=== PATIENT | male | born 1955 | race Caucasian/White ===

== ENCOUNTER 2018-12-10 13:09 | Day surgery (SDC) | payer OTHER ==
[2018-12-08 10:30] VITALS: BMI 27.4
--- NOTE | 2018-12-10 12:26 | OP ---
Operative Note - Note: Operative Date: 12/10/18 Pre-Operative Diagnosis: Right rotator cuff repair Operation: Right shoulder arthroscopy Post-Operative Diagnosis: Same as Pre-op Surgeon: Con Ashley Metal Window Frame Maker: Janeen Adair Anesthesia: General Operative Report Dictated: Yes
[2018-12-10] MEDS ORDERED: ROPIVACAINE HCL 0.5% 30ML VIAL ONE (14:10)
[2018-12-10] MEDS ORDERED: MIDAZOLAM HCL 2 MG/2 ML SINGLE DOSE VIAL ONE (14:10)
[2018-12-10] MEDS ORDERED: EPINEPHrine 1:1,000 1 MG/1 ML - 30ML VIAL (INJECTION) ONE (14:38)
[2018-12-10] MEDS ORDERED: oxyCODONE HCL 5 MG TABLET PO PRN ×2 (14:47)
[2018-12-10] MEDS ORDERED: ACETAMINOPHEN 1000 MG/100 ML VIAL (NON FORMULARY) IVPB ONE ×2 (14:47→18:00)
[2018-12-10] MEDS ORDERED: ONDANSETRON 4 MG/2 ML VIAL IVPUSH PRN (14:47)
[2018-12-10] MEDS ORDERED: DEXAMETHASONE SOD PHOSPHATE/PF 10 MG/ML SDV ONE (14:54)
[2018-12-10] MEDS ORDERED: LACTATED RINGERS SOLUTION 1,000 ML IV SCH (15:00)
[2018-12-10] MEDS ORDERED: PROPOFOL 20 ML ONE (15:22)
[2018-12-10] MEDS ORDERED: ceFAZolin SODIUM 1 GM VIAL ONE (15:37)
[2018-12-10] MEDS ORDERED: TRANEXAMIC ACID 1000 MG/10 ML VIAL ONE (16:02)
[2018-12-10] MEDS ORDERED: LIDOCAINE 1%/EPI 1:100000 (20 ML MULTI DOSE VIAL) ONE (16:55)
[2018-12-10] MEDS ORDERED: LIDOCAINE 1%/EPI 1:100000 (50 ML MULTI DOSE VIAL) INF ONE (17:24)
[2018-12-10] MEDS ORDERED: ACETAMINOPHEN INJECTION 100 ML IVPB ONE (18:01)
[2018-12-10 19:04] VITALS: TEMP 98.6
--- NOTE | 2018-12-10 19:07 | OP ---
DATE OF OPERATION: 12/10/2018 PREOPERATIVE DIAGNOSIS: Right shoulder rotator cuff tear, biceps tendinopathy. POSTOPERATIVE DIAGNOSIS: Right shoulder rotator cuff tear, biceps tendinopathy, superior labral anteroposterior tear, subacromial impingement. PROCEDURE: Right shoulder arthroscopy, rotator cuff repair, subacromial decompression, biceps tenodesis. SURGEON: Con Ashley MD PIT INSPECTOR: EMILY Gracia, whose skillful assistance was necessary for the safe and timely performance of this procedure. Ms. Adair was able to provide limb positioning, retraction, and assist in the driving of the camera, suture passage, as well as insertion of orthopedic fixation hardware. ANESTHESIA: Regional plus general. POSTOPERATIVE CONDITION: Stable. COMPLICATIONS: None. IMPLANTS: [employer] SpeedBridge kit with 4 Swivel-Lock anchors, [employer] Q-Fix x1. INDICATIONS: This is a 63-year-old gentleman who was experiencing right shoulder pain and weakness. Treatment options, including nonoperative care with physical therapy, injections, medication, activity modification, were discussed. We discussed operative risks in detail, including bleeding, infection, neurovascular injury, need for further surgery, postoperative pain and stiffness, failure to heal, re-tear of the shoulder, long-term loss of motion and strength. We discussed the use of perioperative antibiotic and DVT prophylaxis. I reviewed the lengthy recovery from surgery. I addressed all the patient's questions and concerns. He voiced understanding and elected to proceed. PROCEDURE: The patient was brought to the operating room after administration of a regional block in the preoperative holding area. He was then given general anesthesia. He was placed into the beach chair position, careful to pad all the bony prominences. His neck was maintained in neutral cervical positioning. The right upper extremity was examined, demonstrating full range of motion and good stability. The patient was then prepped and draped in the usual sterile fashion. A preoperative dose of antibiotics was given, and the usual timeout procedure was performed. The bony landmarks were then drawn out on the shoulder. A posterior viewing portal was established using an 11 blade. Examination of the glenohumeral joint demonstrated no significant articular wear. Examination of the labrum demonstrated significant fraying of the superior aspect. The biceps tendon was noted to have diffuse tendinopathy within the joint. It was broadened and frayed. Passing the arthroscope over it, the subscapularis was examined. It was found to have no significant tendinosis and no tear. The arthroscope was now passed more superiorly, and the supraspinatus was noted to be torn and slightly retracted. The infraspinatus was seen to be intact. The arthroscope was then brought back into the center of the joint. Here, decision was made to perform a biceps tenodesis and so the tenotomy of this was now performed utilizing the shaver as well as an arthroscopic biter. The superior aspect of the glenoid was debrided to allow for healing of the soft tear, but it was felt that no repair was necessary. The scope was now passed into the subacromial space. Here, significant fraying was noted, consistent with impingement. There was also significant bursitis. A lateral portal was established and now this was debrided. The bed of the greater tuberosity was now debrided using electrocautery as well as the shaver down to bleeding bone. It was decided to perform a double-row repair here. Two medial anchors were then punched and inserted, gaining excellent purchase. Sutures were then passed through the rotator cuff utilizing a first-pass suture passer. The sutures were then divided and passed into a crossing pattern. In the anterior lateral row, anchor was punched and then inserted, bringing down the cuff onto the greater tuberosity. A posterior anchor was then loaded as well. It was seen that there was going to be a dog ear in the back, however, and therefore a FiberLink suture was used (a luggage-tag type suture) into the posterior leaflet. This was then also loaded into the anchor. This now reduced the dog-ear component. The anchor was then punched and inserted, bringing the rotator cuff securely down onto the entirety of the greater tuberosity. It was passed through a range of motion and seen to be stable. The bony aspect of the subacromial decompression was now completed after the rotator cuff repair was complete, providing excellent space for range of motion. At this point, the excess fluid was withdrawn from the joint. The portals were sutured using 3-0 nylon. The shoulder was then re-prepped and a new drape was placed. An incision was planned out over the inferior aspect of the pectoralis major tendon. This was carried down through skin and subcutaneous tissue. Blunt spreading was used to expose the fascia of the pectoralis tendon. Utilizing finger dissection, the interval between the pectoralis and the humerus was developed. The biceps tendon was now palpated. An elevator was now used to free up the fascia around the biceps tendon, and then it was withdrawn out of the wound. It should be noted that prior to making incision, the area was injected with 1% lidocaine with epinephrine. The biceps groove was now rasped utilizing an arthroscopic rasper. The drill guide for the Q-Fix was now inserted into the midportion of the bicipital groove. The drill was passed and then the anchor was inserted, gaining excellent purchase. The limbs of the sutures where now whip-stitched into the free end of the biceps tendon, trimming a portion of the tendon to ensure proper length. The free ends of the suture were then used to pull the biceps in towards the anchor, and then it was tied into place, securing the biceps. The wound was then irrigated. The skin was closed using vertical mattress 4-0 nylon suture. Sterile dressings were now placed. The patient was extubated and transferred to the recovery room in stable condition. Jeffery [id number]
[2018-12-10 19:15] VITALS: PULSE 77
[2018-12-10 20:15] VITALS: BP 134/75
== END 2018-12-10 20:10 | disposition home or self-care (01) ==
LOC: FASU 13:09
PROVIDERS: ATTEND Orthopaedic Surgery Sports Medicine
PROC: 0RBJ4ZZ Excision of Right Shoulder Joint, Percutaneous Endoscopic Approach (ICD-10-PCS; 2018-12-10)
PROC: 0LQ14ZZ Repair Right Shoulder Tendon, Percutaneous Endoscopic Approach (ICD-10-PCS; principal; 2018-12-10 15:50)
PROC: 0LS14ZZ Reposition Right Shoulder Tendon, Percutaneous Endoscopic Approach (ICD-10-PCS; 2018-12-10 15:50)
PROC: 0RNJ4ZZ Release Right Shoulder Joint, Percutaneous Endoscopic Approach (ICD-10-PCS; 2018-12-10 15:50)
DX: M75.121 Complete rotator cuff tear or rupture of right shoulder, not specified as traumatic (principal); M75.21 Bicipital tendinitis, right shoulder; M75.51 Bursitis of right shoulder; M75.41 Impingement syndrome of right shoulder; S43.431A Superior glenoid labrum lesion of right shoulder, initial encounter; X58.XXXA Exposure to other specified factors, initial encounter; Y93.9 Activity, unspecified; Y92.9 Unspecified place or not applicable
CPT/HCPCS: 94760; J0131